=== PATIENT | male | born 1960 ===

== ENCOUNTER 2022-09-11 05:20 | Day surgery (SDC) | payer OTHER ==
[~2022-09-11] VITALS: Ht 170.2 cm; Wt 73.9 kg
[~2022-09-11 05:20] MED LIST: ALTACE1.25 MG PO; GRALISE600 MG PO; HYDREA500 M1 PO; JANUMET 50-1,01 EACH PO; ZOLOFT25 MG PO; [UNRECOGNIZED DRUG - OTHER]
== END 2022-09-11 15:20 | disposition home or self-care (01) ==
LOC: CIR.AMB 05:20
PROVIDERS: ATTEND Urology
DX: N47.1 Phimosis (principal); Z20.822 Contact with and (suspected) exposure to COVID-19; E11.9 Type 2 diabetes mellitus without complications; F17.210 Nicotine dependence, cigarettes, uncomplicated; Z79.84 Long term (current) use of oral hypoglycemic drugs